=== PATIENT | male | born 1945 | race African-American/Black ===

== ENCOUNTER 2019-03-14 12:50 | Emergency (ER) | payer MEDICARE, MEDICAID ==
[~2019-03-14] VITALS: Ht 185.4 cm; Wt 118.0 kg
[~2019-03-14 12:50] MED LIST: AMLO10TA80; LOT10
[2019-03-14] MEDS ORDERED: KETOROLAC 60MG/2ML VIAL IM ONE (13:30)
[2019-03-14 14:20] LABS: CLARITY URINE CLEAR (CLEAR); COLOR URINE DARK YELLOW (YELLOW); KETONES URINE TRACE (NEGATIVE); LEUKOCYTE ESTERASE URINE NEGATIVE (NEGATIVE); NITRITE URINE NEGATIVE (NEGATIVE); OCCULT BLOOD URINE NEGATIVE (NEGATIVE); PROTEIN URINE TRACE (NEGATIVE); SPECIFIC GRAVITY URINE 1.036 (1.005-1.030)
[2019-03-14 15:15] VITALS: BP 145/90
== END 2019-03-14 15:48 | disposition home or self-care (01) ==
LOC: ER 12:50
DX: M54.41 Lumbago with sciatica, right side (principal); M25.551 Pain in right hip; I11.9 Hypertensive heart disease without heart failure; I25.2 Old myocardial infarction; Z88.0 Allergy status to penicillin; Z88.5 Allergy status to narcotic agent; Z95.1 Presence of aortocoronary bypass graft
CPT/HCPCS: 72100; 73502; 81003; 96372; 99284; J1885

== ENCOUNTER → 2020-02-02 | Outpatient (CLI) | payer MEDICARE, MEDICAID ==
[~2020-02-02] MED LIST changes: +BENA10TA75; -LOT10; +METO25TA6 PO
== END | disposition home or self-care (01) ==
LOC: LAB 10:41
DX: R05 Cough (principal); Z20.828 Contact with and (suspected) exposure to other viral communicable diseases
CPT/HCPCS: 87635

== ENCOUNTER → 2020-02-04 | Day surgery (SDC) | payer MEDICARE, MEDICAID ==
[2020-02-04] VITALS (9 sets, daily range): BP systolic 153–167; BP diastolic 64–81
[~2020-02-04] VITALS: Ht 185.4 cm; Wt 95.3 kg
[~2020-02-04] MED LIST changes: +FENTANYL CITRATE/PF 50MCG/ML 2ML VIAL ONE; +LIDOCAINE HCL 1% 20ML VIAL (Pyxis) INJ ONE; +SODIUM BICARBONATE 4% (2.4MEQ) 5ML VIAL IV ONE
== END | disposition home or self-care (01) ==
LOC: RAD 08:46
PROVIDERS: ATTEND Specialist
DX: R91.1 Solitary pulmonary nodule (principal); Z88.0 Allergy status to penicillin; Z88.5 Allergy status to narcotic agent; Z79.899 Other long term (current) drug therapy; Z98.890 Other specified postprocedural states
CPT/HCPCS: 32405; 71045; 77012; 88309; J3010; J3490; 99152; 99153; G0500

== ENCOUNTER → 2020-02-16 | Outpatient (CLI) | payer MEDICARE, MEDICAID ==
[~2020-02-16] MED LIST changes: -FENTANYL CITRATE/PF 50MCG/ML 2ML VIAL ONE; -LIDOCAINE HCL 1% 20ML VIAL (Pyxis) INJ ONE; -SODIUM BICARBONATE 4% (2.4MEQ) 5ML VIAL IV ONE
== END | disposition home or self-care (01) ==
LOC: LAB 11:45
PROVIDERS: ATTEND Family Medicine
DX: C34.32 Malignant neoplasm of lower lobe, left bronchus or lung (principal)
CPT/HCPCS: 36415; 82378

== ENCOUNTER → 2020-03-03 | Outpatient (CLI) | payer MEDICARE, MEDICAID | END | disposition home or self-care (01) | LOC: LAB 09:57 | PROVIDERS: ATTEND Internal Medicine Hematology & Oncology | DX: Z20.828 Contact with and (suspected) exposure to other viral communicable diseases (principal) | CPT/HCPCS: C9803; U0003 ==

== ENCOUNTER → 2020-03-07 | Outpatient (CLI) | payer MEDICARE, MEDICAID ==
[~2020-03-07] MED LIST changes: +ALBUTEROL (0.5%) 2.5MG/0.5ML NEB HHN ONE
== END | disposition home or self-care (01) ==
LOC: RAD 12:54
PROVIDERS: ATTEND Internal Medicine Hematology & Oncology
DX: J98.4 Other disorders of lung (principal); U07.1 COVID-19
CPT/HCPCS: 94060; 94727; 94729

== ENCOUNTER → 2022-01-10 | Day surgery (SDC) | payer MEDICARE, MEDICAID ==
[~2022-01-10] MED LIST changes: -ALBUTEROL (0.5%) 2.5MG/0.5ML NEB HHN ONE; +LIDOCAINE HCL 1% 10 MG/ML 10ML VIAL ONE
== END | disposition home or self-care (01) ==
LOC: RADANGIO 09:41
PROVIDERS: ATTEND Internal Medicine Hematology & Oncology
DX: Z45.2 Encounter for adjustment and management of vascular access device (principal); C34.32 Malignant neoplasm of lower lobe, left bronchus or lung; I10 Essential (primary) hypertension; I25.10 Atherosclerotic heart disease of native coronary artery without angina pectoris; Z88.0 Allergy status to penicillin; Z88.5 Allergy status to narcotic agent; Z79.899 Other long term (current) drug therapy; Z98.890 Other specified postprocedural states
CPT/HCPCS: 36573; C1725; J3490